=== PATIENT | male | born 1960 ===

== ENCOUNTER 2019-06-07 12:20 | Emergency (ER) | payer OTHER ==
[~2019-06-07] VITALS: Ht 172.7 cm; Wt 81.6 kg
== END 2019-06-07 16:30 | disposition home or self-care (01) ==
LOC: ER 12:20
DX: R51 Headache (principal)

== ENCOUNTER 2019-06-09 13:41 | Emergency (ER) | payer OTHER ==
[~2019-06-09] VITALS: Ht 172.7 cm; Wt 81.6 kg
== END 2019-06-09 19:49 | disposition home or self-care (01) ==
LOC: ER 13:41
DX: S00.83XA Contusion of other part of head, initial encounter (principal); R42 Dizziness and giddiness; W18.39XA Other fall on same level, initial encounter; Y93.89 Activity, other specified; Y92.89 Other specified places as the place of occurrence of the external cause; Y99.8 Other external cause status
CPT/HCPCS: 70551